=== PATIENT | male | born 1940 | race Caucasian/White ===

== ENCOUNTER 2018-05-19 22:32 | Outpatient (CLI) | payer OTHER | END 2018-05-19 22:33 | disposition critical access hospital (66) | LOC: EMS 22:32 | PROVIDERS: ATTEND Surgery | DX: M79.89 Other specified soft tissue disorders (principal); R52 Pain, unspecified | CPT/HCPCS: A0425; A0429 ==

== ENCOUNTER 2018-05-19 23:11 | Emergency (ER) | payer OTHER ==
[2018-05-20] MEDS ORDERED: predniSONE 20 MG TABLET ONE (00:11)
[2018-05-20] MEDS ORDERED: INDOMETHACIN 25 MG CAPSULE PO ONE (00:11)
[2018-05-20 00:14] LABS: ALBUMIN 3.1 g/dL (3.2-5.5); ALBUMIN/GLOBULIN RATIO 0.7 (1.0-2.2); BILIRUBIN,TOTAL 1.2 mg/dL (0.2-1.0); CALCIUM 8.6 mg/dL (8.5-10.3); CREATININE 2.1 mg/dL (0.6-1.2); TOTAL PROTEIN 7.6 g/dL (6.7-8.2)
[2018-05-20 00:23] LABS: BASOPHILS # (AUTO) 0.1 10^3/uL (0.0-0.1); BASOPHILS % (AUTO) 0.6 %; EOSINOPHILS # (AUTO) 0.1 10^3/uL (0.0-0.7); EOSINOPHILS % (AUTO) 0.6 %; HGB - HEMOGLOBIN 12.6 g/dL (14.0-18.0); LYMPHOCYTES # (AUTO) 0.8 10^3/uL (1.5-3.5); LYMPHOCYTES % (AUTO) 6.8 %; MEAN CORPUSCULAR HEMOGLOBIN 29.7 pg (27.0-31.0); MEAN CORPUSCULAR HGB CONC 32.2 g/dL (32.0-36.0); MEAN CORPUSCULAR VOLUME 92.5 fL (80.0-94.0); MEAN PLATELET VOLUME 8.4 fL (7.4-11.4); MONOCYTES # (AUTO) 1.1 10^3/uL (0.0-1.0); MONOCYTES % (AUTO) 9.2 %; NEUTROPHILS # (AUTO) 10.2 10^3/uL (1.5-6.6); NEUTROPHILS % (AUTO) 82.8 %; PLT - PLATELET COUNT 292 10^3/uL (130-450); RED BLOOD COUNT 4.25 10^6/uL (4.70-6.10); RED CELL DISTRIBUTION WIDTH 15.1 % (12.0-15.0); WHITE BLOOD COUNT 12.4 x10^3/uL (4.8-10.8)
[2018-05-20 00:34] LABS: URIC ACID 7.5 mg/dL (2.6-7.2)
--- NOTE | 2018-05-20 01:16 | ED Physician Documentation ---
History of Present Illness - Stated complaint Stated Complaint: GOUT - Chief complaint Chief Complaint: Ext Problem - History obtained from History obtained from: Patient, Family, EMS - History of Present Illness Timing: Yesterday - Additonal information Additional information: Patient is a 78 year old male with a history of gout who is being brought in by his family for gout flare. According to patient, family and ems patient is visiting from [place]. patient recently had his medications changed but he is not sure what he was previously on. the new medications are not working and now it seems too painful to walk and family is having a hard time taking care of him. Family called ems to bring patient in for evaluation. Review of Systems Constitutional: denies: Fever, Chills Respiratory: denies: Dyspnea, Cough, Wheezing GI: denies: Abdominal Pain, Nausea, Vomiting Musculoskeletal: reports: Extremity pain, Joint pain, Extremity swelling, Joint swelling Neurologic: denies: Generalized weakness, Focal weakness Immunocompromised: denies: Immunocompromised PD PAST MEDICAL HISTORY - Past Medical History Past Medical History: Yes Musculoskeletal: Gout - Past Surgical History Past Surgical History: No - Present Medications Home Medications: Ambulatory Orders Medication Instructions Recorded Confirmed Prednisone 10 mg PO DAILY #1 tab.ds.pk 05/20/18 predniSONE [Prednisone] 30 mg PO DAILY #5 tablet 05/20/18 - Allergies Allergies/Adverse Reactions: Allergies Allergy/AdvReac Type Severity Reaction Status Date / Time succinylcholine Allergy Anaphylaxis Verified 05/19/18 23:21 - Social History Does the pt smoke?: No Smoking Status: Never smoker PD ED PE NORMAL - Vitals Vital signs reviewed: Yes - General General: Alert and oriented X 3 - HEENT HEENT: Atraumatic - Respiratory Respiratory: No respiratory distress - Neuro Neuro: Alert and oriented X 3 Eye Opening: Spontaneous Motor: Obeys Commands Verbal: Oriented GCS Score: 15 PD ED PE EXPANDED - General General: Alert, No acute distress - Extremities Extremities: Right hand (tenderness and swelling of right hand), Right knee ( minimal erythema of bilateral knees), Left knee Results - Vitals Vitals: Vital Signs - 24 hr 05/19/18 23:12 Temperature 37.1 C Heart Rate 97 Respiratory 20 Rate Blood Pressure 133/77 H O2 Saturation 90 L Oxygen O2 Source Room air - Labs Labs: Laboratory Tests 05/19/18 05/19/18 23:52 23:52 WBC 12.4 H RBC 4.25 L Hgb 12.6 L Hct 39.3 L MCV 92.5 MCH 29.7 MCHC 32.2 RDW 15.1 H Plt Count 292 MPV 8.4 Neut # (Auto) 10.2 H Lymph # (Auto) 0.8 L [place] # (Auto) 1.1 H Eos # (Auto) 0.1 Baso # (Auto) 0.1 Absolute Nucleated RBC 0.01 Nucleated RBC % 0.1 Sodium 136 Potassium 4.3 Chloride 98 L Carbon Dioxide 27 Anion Gap 11.0 BUN 26 H Creatinine 2.1 H Estimated GFR (MDRD) 31 L Glucose 183 H Uric Acid 7.5 H Calcium 8.6 Total Bilirubin 1.2 H AST 14 ALT 10 Alkaline Phosphatase 68 Total Protein 7.6 Albumin 3.1 L Globulin 4.5 H Albumin/Globulin Ratio 0.7 L Lipase 14 L PD MEDICAL DECISION MAKING - ED course Complexity details: reviewed results, re-evaluated patient, considered differential, d/w patient, d/w family ED course: Patient was seen and examined at bedside. patient's labs were drawn. patient' s physical findings were consistent with gout, and his uric acid was elevated. Patient was not febrile and the multiple septic joints was unlikely. patient was treated with prednisone and indomethacin. There was no indication for inpatient admission and patient was discharged in stable condition. - Sepsis Event Vital Signs: Vital Signs - 24 hr 05/19/18 23:12 Temperature 37.1 C Heart Rate 97 Respiratory 20 Rate Blood Pressure 133/77 H O2 Saturation 90 L Oxygen O2 Source Room air Departure - Departure Disposition: 01 Home, Self Care Clinical Impression: Gout flare Condition: Good Instructions: Gout Attack Tx, Gout Eat Prevent Follow-Up: primary,care provider [Other] Prescriptions: Prednisone 10 mg PO DAILY #1 tab.ds.pk predniSONE [Prednisone] 30 mg PO DAILY #5 tablet Comments: Your symptoms today are likely secondary to gout flare. you had your first dose of steroids today. You will take 30mg of steroids daily until your symptoms improve then you will start the steroid taper. Steroids will elevate your blood sugars so you will have to monitor them very closely over the next week. You should follow up with your doctor. You can continue with your chronic pain management.
[2018-05-20 01:54] VITALS: BP 126/77
== END 2018-05-20 01:40 | disposition home or self-care (01) ==
LOC: ED 23:11
DX: M10.9 Gout, unspecified (principal)
CPT/HCPCS: 36415; 80053; 83690; 84550; 85025; 99283; A9270; J7512